=== PATIENT | male | born 1970 | race Caucasian/White ===

== ENCOUNTER 2016-09-29 12:52 | Emergency (ER) | payer OTHER ==
[~2016-09-29] VITALS: Ht 177.8 cm; Wt 79.0 kg
[~2016-09-29 12:52] MED LIST: COLC0.6T37 PO; MYCO500T PO; OXYC5TAB3 PO; PRED20TA PO; ZOLP10TA PO
[2016-09-29] MEDS ORDERED: ALBUTEROL/IPRATROPIUM 2.5MG/0.5MG, 3 ML NPPB ONE (13:30)
[2016-09-29] MEDS ORDERED: SODIUM CHLORIDE 0.9% 1,000ML IVBOLUS ONE (13:30)
[2016-09-29] MEDS ORDERED: SODIUM CHLORIDE FLUSH 10ML SYR IVF ONE (13:30)
[2016-09-29] MEDS ORDERED: ALBUTEROL/IPRATROPIUM 2.5MG/0.5MG, 3 ML ONE (13:54)
[2016-09-29] MEDS ORDERED: HYDROmorphone 1 MG/ML, 1ML ONE ×2 (13:55→15:01)
[2016-09-29] MEDS ORDERED: ONDANSETRON 2MG/ML, 2ML ONE (13:55)
[2016-09-29 14:05] LABS: HEMOGLOBIN 15.5 g/dL (13.7-18.0)
[2016-09-29] MEDS: HYDROmorphone 1 MG/ML, 1ML IVPush PRN ×2 (14:07→15:02)
[2016-09-29 14:18] LABS: BLOOD UREA NITROGEN 15 mg/dL (7-18)
[2016-09-29 14:22] LABS: IS PT STATUS REG ER OR PRE ER? YES
[2016-09-29] MEDS ORDERED: ONDANSETRON 2MG/ML, 2ML IVPush ONE (14:30)
[2016-09-29] MEDS ORDERED: OMNIPAQUE 350 MG/ML, 100ML BOTTLE ONE (14:38)
[2016-09-29 15:38] VITALS: BP 123/85
== END 2016-09-29 15:41 | disposition home or self-care (01) ==
LOC: ED 15:35
DX: R07.89 Other chest pain (principal); R06.2 Wheezing
CPT/HCPCS: 36415; 71020; 71275; 80048; 82040; 83605; 83880; 84145; 84484; 85025; 87040; 93005; 94640; 96361; 96374; 96375; 96376; 99285; J1170; J2405; J7030; Q9967; J7620

== ENCOUNTER → 2016-11-25 | Outpatient (CLI) | payer OTHER ==
[2016-11-25 08:56] LABS: ASPARTATE AMINO TRANSFERASE 22 U/L (15-37); BLOOD UREA NITROGEN 13 mg/dL (7-18)
== END | disposition home or self-care (01) ==
LOC: LAB 08:26
PROVIDERS: ATTEND Specialist
DX: M33.92 Dermatopolymyositis, unspecified with myopathy (principal)
CPT/HCPCS: 36415; 80053; 82550; 85025